=== PATIENT | female | born 1985 | race Caucasian/White ===

== ENCOUNTER 2016-05-29 22:29 | Emergency (ER) | payer MEDICAID ==
[2016-05-29 22:48] VITALS: RESP 16; TEMP 97.9
--- NOTE | 2016-05-29 22:56 | EDPHY ---
H & P Stated Complaint: Face swollen, 1700hrs, [place] HPI/ROS: HPI CHIEF COMPLAINT: Swelling around the eyes, Pruritis HISTORY OF PRESENT ILLNESS: This patient very pleasant 30-year-old female significant past medical history for seasonal allergies, presents to the emergency room with swelling around her eyes and pruritus. She is unsure if she ingested something that caused this reaction she denies trouble breathing, trouble swallowing, wheezing, shortness of breath, nausea vomiting or diarrhea or abdominal cramps. No rash. No urticaria. Patient states this happened around 830 this evening. She did take her seasonal allergy medication, and this did seem to improve her itching. At this time she has no chest pain or shortness of breath. she also states that she had a headache frontal throbbing is now resolved however this was what caused her to take a nap initially that she woke up with swelling around her eyes and pruritus. No history of anaphylaxis or severe allergies. Only has seasonal allergies. Past Medical History: asthma, seasonal allergies Past Surgical History: Denies significant surgical history Social History: Denies daily use of drugs alcohol tobacco products Family History: noncontributory ROS REVIEW OF SYSTEMS: A comprehensive 10 point review of systems is otherwise negative aside from elements mentioned in the history of present illness. Exam Constitutional triage nursing summary reviewed, vital signs reviewed, awake/ alert. Eyes normal conjunctivae and sclera, EOMI, PERRLA. HENT periorbital swelling, no evidence of infection specifically evidence of cellulitis, no proptosis, normal inspection, atraumatic, moist mucus membranes, no epistaxis, neck supple/ no meningismus, no raccoon eyes. Respiratory clear to auscultation bilaterally, normal breath sounds, no respiratory distress, no wheezing. Cardiovascular rate normal, regular rhythm, no murmur, no edema, distal pulses normal. Gastrointestinal soft, non-tender, no rebound, no guarding, normal bowel sounds, no distension, no pulsatile mass. Genitourinary no CVA tenderness. Musculoskeletal no midline vertebral tenderness, full range of motion, no calf swelling, no tenderness of extremities, no meningismus, good pulses, neurovascularly intact. Skin pruritus, no urticaria ,pink, warm, & dry, no rash, skin atraumatic. Neurologic awake, alert and oriented x 3, AAOx3, moves all 4 extremities equally, motor intact, sensory intact, CN II-XII intact, normal cerebellar, normal vision, normal speech. Psychiatric normal mood/affect. Heme/Lymph/Immune no lymphadenopathy. Differential Diagnosis: Includes but is not limited to in a particular order, allergic reaction, anaphylaxis, infection Medical Decision Making: Plan for this patient as she appears very well here nontoxic in no acute distress specifically no respiratory distress will give a dose of prednisone 60 mg as well as Benadryl 25 mg and re-evaluate. No evidence of anaphylaxis or acute severe allergic reaction at this time. Re-evaluation: Source: Patient - Personal History LMP (Females 10-55): Now Current Tetanus/Diphtheria Vaccine: Yes Tetanus Vaccine Date: 2015 - Medical/Surgical History Hx Asthma: Yes Hx Chronic Respiratory Disease: No Hx Diabetes: No Hx Cardiac Disease: No Hx Renal Disease: No Hx Cirrhosis: No Hx Alcoholism: No Hx HIV/AIDS: No Hx Splenectomy or Spleen Trauma: No Other PMH: Asthma as a child. - Social History Smoking Status: Never smoked Constitutional: Initial Vital Signs Temperature (C) 36.6 C 05/29/16 22:45 Heart Rate 94 05/29/16 22:45 Respiratory Rate 16 05/29/16 22:45 Blood Pressure 113/83 H 05/29/16 22:45 O2 Sat (%) 96 05/29/16 22:45 O2 Delivery Mode Room Air Allergies/Adverse Reactions: No Known Allergies Allergy (Verified 05/29/16 22:48) Home Medications: Medication Instructions Recorded Cetirizine 05/29/16 diphenhydrAMINE [Benadryl 25 MG 25 mg PO BID #6 tab 05/30/16 (*)] predniSONE 60 mg PO DAILY #9 tab 05/30/16 Medical Decision Making - Data Points Medications Given: Discontinued Medications Diphenhydramine HCl (Benadryl) 25 mg PO EDNOW ONE Stop: 05/29/16 23:03 Last Admin: 05/29/16 23:20 Dose: 25 mg Prednisone (Prednisone) 60 mg PO EDNOW ONE Stop: 05/29/16 23:03 Last Admin: 05/29/16 23:20 Dose: 60 mg Departure - Departure Disposition: Home, Routine, Self-Care Clinical Impression: Allergic reaction Qualifiers: Encounter type: initial encounter Qualified Code(s): T78.40XA - Allergy, unspecified, initial encounter Condition: Good Instructions: Allergies (ED), General Allergic Reaction (ED) Additional Instructions: 1. Please take prednisone for the next 3 days. 2. please take Benadryl for next 3 days. 3.Return to the emergency room if develops any worsening signs of allergic reaction trouble swallowing, trouble breathing worsening swelling. Referrals: NONE *PRIMARY CARE P,. [Primary Care Provider] - As per Instructions Prescriptions: diphenhydrAMINE [Benadryl 25 MG (*)] 25 mg PO BID #6 tab predniSONE 60 mg PO DAILY #9 tab
[2016-05-29] MEDS ORDERED: predniSONE 20 MG TAB PO ONE (23:02)
[2016-05-29] MEDS ORDERED: diphenhydrAMINE 25 MG CAP PO ONE (23:02)
[2016-05-30 01:27] VITALS: BP 127/96; PULSE 78; O2SAT 93
== END 2016-05-30 01:25 | disposition home or self-care (01) ==
DX: T78.40XA Allergy, unspecified, initial encounter (principal); J45.909 Unspecified asthma, uncomplicated